=== PATIENT | female | born 1980 | race Two or more races ===

== ENCOUNTER → 2023-04-01 | Emergency (ER) | payer BC ==
[~2023-04-01] VITALS: Ht 152.4 cm; Wt 59.0 kg
[~2023-04-01] MED LIST: ACID REDUCER20 M1 PO; INDERAL XL80 MG PO
== END | disposition left against medical advice (07) ==
LOC: ER 14:00
DX: Z53.21 Procedure and treatment not carried out due to patient leaving prior to being seen by health care provider (principal)